=== PATIENT | male | born 1970 | race Caucasian/White ===

== ENCOUNTER 2017-10-01 19:21 | Emergency (ER) | payer SELFPAY ==
[~2017-10-01] VITALS: Ht 182.9 cm; Wt 93.9 kg
[2017-10-01 19:25] VITALS: BP 145/95
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
[2017-10-01] MEDS ORDERED: CEPH-264 PO (19:54)
[2017-10-01] MEDS ORDERED: oxyCODONE/APAP 10/325 1 TAB TABLET PO ONE (20:00)
[2017-10-01] MEDS ORDERED: KETOROLAC 60 MG/2 ML VIAL. IM ONE (20:00)
[2017-10-01] MEDS ORDERED: cefTRIAXone IM 1 GM VIAL IM ONE (20:00)
[2017-10-01] MEDS ORDERED: diphenhydrAMINE HCL 25 MG CAPSULE PO ONE (20:15)
[2017-10-01] MEDS ORDERED: NEOMYCIN/POLYMYXIN/HC OTIC SUSPENSION 10ML BOTTLE. AU ONE (20:15)
== END 2017-10-01 20:55 | disposition home or self-care (01) ==
LOC: ER 19:21
DX: H66.93 Otitis media, unspecified, bilateral (principal); J06.9 Acute upper respiratory infection, unspecified
CPT/HCPCS: 96372; 99284; J0696; J1885; Q0163

== ENCOUNTER 2017-10-13 08:55 | Emergency (ER) | payer SELFPAY ==
[2017-10-13 08:55] VITALS: BP 150/99
[~2017-10-13 08:55] MED LIST: CEPH-264 PO
--- NOTE | 2017-10-13 09:09 | PHYS DOC ---
Past History Past Medical History: Other Past Surgical History: No Surgical History Alcohol Use: None Drug Use: None Adult General Chief Complaint Chief Complaint: SHOULDER INJURY HPI HPI Patient is a 47-year-old male who presented ambulatory to the ED with the complaint of a fall on stairs. Patient states about an hour ago he was going down stairs made of concrete outside covered with no, he slipped and fell backwards. He believes he struck his head, the back of his neck, his upper back , and left upper arm/elbow area on the stairs. He got up and ambulated to his vehicle. He drove himself to [facility] and checked into the ED, he was seen but not given any medication, they ordered x-rays and he got impatient and left. He drove himself here and ambulated to the EMS doors, pounded on the doors until staff let him in. On arrival, he stated he needed to use the restroom, he was taken to the [facility] restroom where he urinated without closing the door. He was then taken to an exam room where he sat on the bed for history and exam. Patient denies loss of consciousness. He denies previous injury to the left shoulder or arm. He is right-handed. Patient gives a history of hypertension and "heart attacks", states he takes medication for "anxiety". States he does not smoke and drinks occasionally. Review of Systems Review of Systems Review of systems was not able to be obtained because the patient was uncooperative and then left. Allergies Allergies Allergies Coded Allergies Type Severity Reaction Last Updated Verified No Known Drug Allergies 10/01/17 No Physical Exam Physical Exam Constitutional: Well developed, well nourished, alert, warm and dry, ambulatory. Patient required assistance removing his T-shirt but then was noted to be able to put his T-shirt on himself when he decided to leave. HENT: Normocephalic, atraumatic, bilateral external ears normal, nose normal. No evidence of trauma to the head or face. Eyes: conjunctiva normal, no discharge. [] Neck: Normal range of motion, no stridor. No significant tenderness to the cervical spine on palpation. No deformity or crepitance. No evidence of contusion or abrasion. Back: Tenderness to palpation approximately T3-5 area. No evidence of contusion , swelling, or deformity. No tenderness of the lower thoracic or lumbar spine to palpation. Inspection of the entire back is unremarkable for acute injury. Cardiovascular:Heart rate regular rhythm, no murmur [] Lungs & Thorax: Bilateral breath sounds clear to auscultation [] Skin: Warm, dry, no erythema, no rash. [] Extremities: Right upper extremity unremarkable for deformity or tenderness. Moving right upper extremity with full range of motion without difficulty. Left upper extremity without significant tenderness to the shoulder joint, clavicle. Tenderness to the posterior aspect of the left upper arm. No deformity is noted on inspection or palpation. Patient refuses to allow palpation of his elbow. He does appear to have full range of motion of the elbow including flexion, extension, and rotation. No swelling noted to the elbow. Forearm, wrist, hand is without tenderness or deformity. Neurologic: Alert and oriented X 3, normal motor function, no focal deficits noted. [] EKG EKG [] Radiology/Procedures Radiology/Procedures [] Course & Med Decision Making Course & Med Decision Making Pertinent Labs and Imaging studies reviewed. (See chart for details) 47-year-old male presents ambulatory to the ED reporting a slip and fall on concrete stairs with injury to his upper back and left upper arm. Upon arrival to the ED, the patient was very argumentative, refusing to answer most questions , repeatedly loudly demanding that he just wants to be checked out and wants x- rays. ED application security specialist came and the patient became much more cooperative and did answer questions. After history and examination, I advised the patient that we will obtain x-rays of his left upper extremity and CT scan of his head and cervical/thoracic spine. Patient stood up off the bed, put his own T-shirt on, and stated that he is just going to leave. Patient ambulated out of the emergency department prior to having any discharge instructions or signing paperwork. Patient appears to be able to make his own decisions. He does not appear to be overtly intoxicated or under the influence. He appears to be oriented. [] Dragon Disclaimer Dragon Disclaimer This electronic medical record was generated, in whole or in part, using a voice recognition dictation system. Departure Departure: Impression: Primary Impression: Contusion of left arm Additional Impressions: Contusion of back wall of thorax Fall from slipping on snow Fall on stairs Disposition: 07 AGAINST MEDICAL ADVICE Condition: STABLE Referrals: PCP,NO (PCP) Problem Qualifiers HOLLY OLIVERA MD Oct 13, 2017 09:09
== END 2017-10-13 09:05 | disposition left against medical advice (07) ==
LOC: ER 08:55
DX: S40.022A Contusion of left upper arm, initial encounter (principal); S20.229A Contusion of unspecified back wall of thorax, initial encounter; F41.9 Anxiety disorder, unspecified; I11.9 Hypertensive heart disease without heart failure; W10.8XXA Fall (on) (from) other stairs and steps, initial encounter; Y93.89 Activity, other specified; Y99.8 Other external cause status; Y92.89 Other specified places as the place of occurrence of the external cause
CPT/HCPCS: 99281

== ENCOUNTER 2019-07-19 12:45 | Emergency (ER) | payer MEDICAID ==
[~2019-07-19] VITALS: Ht 182.9 cm; Wt 93.9 kg
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
[2019-07-19 13:22] LABS: BASO # 0.1 x10^3/uL (0.0-0.2); BASO % 1 % (0-3); EOS # 0.2 x10^3/uL (0.0-0.7); EOS % 3 % (0-3); HEMATOCRIT 50.7 % (39.0-53.0); HEMOGLOBIN 17.1 g/dL (13.0-17.5); LYMPH # 1.9 x10^3/uL (1.0-4.8); LYMPH % 31 % (24-48); MEAN CORPUSCULAR HEMOGLOBIN 30 pg (25-35); MEAN CORPUSCULAR HGB CONC 34 g/dL (31-37); MEAN CORPUSCULAR VOLUME 90 fL (79-100); MONO # 0.5 x10^3/uL (0.0-1.1); MONO % 8 % (0-9); NEUT # 3.5 x10^3uL (1.8-7.7); NEUT % 57 % (31-73); PLATELET COUNT 209 x10^3/uL (140-400); RED BLOOD COUNT 5.66 x10^6/uL (4.30-5.70); WHITE BLOOD COUNT 6.1 x10^3/uL (4.0-11.0)
[2019-07-19] MEDS ORDERED: HYDROcodone/APAP 5/325MG 1 TAB TABLET PO ONE (13:30)
[2019-07-19] MEDS ORDERED: IOHEXOL 300 MG/ML 75 ML VIAL. IV ONE (13:30)
[2019-07-19 13:34] LABS: ALBUMIN 3.7 g/dL (3.4-5.0); ALBUMIN/GLOBULIN RATIO 1.1 (1.0-1.7); CALCIUM 8.9 mg/dL (8.5-10.1); GFR 79.1; TOTAL BILIRUBIN 0.4 mg/dL (0.2-1.0)
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
[2019-07-19] MEDS ORDERED: CYCL5TAB PO (14:49)
[2019-07-19 15:00] VITALS: BP 143/65
== END 2019-07-19 14:56 | disposition home or self-care (01) ==
LOC: ER 12:45
DX: M25.511 Pain in right shoulder (principal); M54.2 Cervicalgia; R07.89 Other chest pain; I11.9 Hypertensive heart disease without heart failure; I25.2 Old myocardial infarction; F41.9 Anxiety disorder, unspecified; F32.9 Major depressive disorder, single episode, unspecified; Z87.820 Personal history of traumatic brain injury; V43.62XA Car passenger injured in collision with other type car in traffic accident, initial encounter; Y93.89 Activity, other specified; Y92.488 Other paved roadways as the place of occurrence of the external cause; Y99.8 Other external cause status
CPT/HCPCS: 36415; 70450; 71260; 72125; 80053; 85025; 99285; Q9967

== ENCOUNTER → 2019-07-28 | Outpatient (CLI) | payer OTHER, MEDICAID ==
[2019-07-19 15:00] VITALS: BP 143/65
[~2019-07-28] MED LIST changes: +CYCL5TAB PO
--- NOTE | 2019-07-28 17:36 | RAD ---
Thyroid sonogram Clinical indications: Thyroid nodule seen on CT. FINDINGS: The longitudinal and AP and transverse dimensions of the right lobe are 5.2 cm and 2.6 cm and 2.3 cm respectively. The longitudinal and AP and transverse dimensions of the left lobe are 4.5 cm and 1.8 cm and 2.0 cm respectively. On the right side, there is a dominant central mainly solid nodule measuring 2.9 cm in greatest dimension. Punctate echogenic foci are seen. Therefore this is a TR 4 lesion. On the left side, small colloid cyst is seen within the upper pole measuring 4 mm. There is a hypoechoic nodule within the lower aspect measuring 19 mm. Sound through-transmission is seen. This most likely represents a complex colloid cyst as well. This is considered a TR 3 lesion. This nodule may be followed sonographically. The isthmus measures 7 mm in thickness. IMPRESSION: Dominant nodule of the right lobe of the thyroid gland. Recommend ultrasound-guided fine-needle aspiration. Reference: ACR thyroid imaging, reporting and data system (TI-RADS): White paper of the ACR TI-RADS committee; J[employer]RNAL OF THE [employer]; volume 14, issue 5, pages 587-595 (February 2017) Electronically signed by: Kenton Marr MD (07/28/2019 5:33 PM) [id number]
== END | disposition home or self-care (01) ==
LOC: US 09:15
PROVIDERS: ATTEND Family Medicine
DX: E04.1 Nontoxic single thyroid nodule (principal)
CPT/HCPCS: 76536

== ENCOUNTER → 2019-09-04 | Outpatient (CLI) | payer OTHER ==
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
== END | disposition home or self-care (01) ==
LOC: PMG 16:39
PROVIDERS: ATTEND Family Medicine
DX: M25.522 Pain in left elbow (principal); M79.89 Other specified soft tissue disorders; V89.2XXA Person injured in unspecified motor-vehicle accident, traffic, initial encounter; Y93.89 Activity, other specified; Y92.89 Other specified places as the place of occurrence of the external cause; Y99.8 Other external cause status
CPT/HCPCS: 73080

== ENCOUNTER 2020-02-12 17:30 | Emergency (ER) | payer OTHER, MEDICAID ==
[~2020-02-12] VITALS: Ht 182.9 cm; Wt 107.0 kg
--- NOTE | 2020-02-12 17:54 | PHYS DOC ---
Past History Past Medical History: Anxiety, Depression, Heart Disease, Hypertension, [place], Other Additional Past Medical Histor: TBI Past Surgical History: Other Additional Past Surgical Histo: eyes Smoking: Second-hand Alcohol Use: Occasionally Drug Use: None General Adult HPI: HPI: ".. I was feeling like ... I had the flu ... or something the past week or so... I was talking to my doctor Yazmin Ozuna... I was feeling like lightheaded .. she said I need to come in and get checked.... May be a COVID test or something".. " I ve got this traumatic brain injury when I tried to hang myself so I have to be real careful with my body now..." Patient is a 49 year old male who presents with above hx and complaints of cough that is nonproductive. Patient denies any recent travel outside the [place] area. Patient denies any specific ill contacts other than his significant other who recently complained of sneezing and congestion.. Patient does have a past significant medical history of traumatic brain injury. Patient does have history of anxiety. Patient traumatic brain injury occurred during a suicide attempt. Patient did get flu vaccination pt. follows with Dr. Wilkes as primary and Dr. Yazmin Leger Review of Systems: Review of Systems: Constitutional: Subjective fever or chills Eyes: Denies change in visual acuity HENT: Denies nasal congestion or sore throat Respiratory: History of a nonproductive cough Cardiovascular: Denies chest pain or edema GI: Denies abdominal pain, nausea, vomiting, bloody stools or diarrhea : Denies dysuria Musculoskeletal: Denies back pain or joint pain Integument: Denies rash Neurologic: Denies headache, focal weakness or sensory changes complaints of feeling lightheaded Endocrine: Denies polyuria or polydipsia Lymphatic: Denies swollen glands Psychiatric: Denies depression or anxiety Heart Score: HEART Score for Chest Pain: HEART Score for Chest Pain Response (Comments) Value History Slighlty/Non-Suspicious 0 ECG Normal 0 Age >45 - < 65 1 Risk Factors 1 or 2 Risk Factors 1 Troponin < Normal Limit 0 Total 2 Risk Factors: Risk Factors: DM, Current or recent (<one month) smoker, HTN, HLP, family history of CAD, obesity. Risk Scores: Score 0 - 3: 2.5% MACE over next 6 weeks - Discharge Home Score 4 - 6: 20.3% MACE over next 6 weeks - Admit for Clinical Observation Score 7 - 10: 72.7% MACE over next 6 weeks - Early Invasive Strategies Family History: Family History: Noncontributory Current Medications: Current Meds: See nursing for home meds Allergies: Allergies: Allergies Coded Allergies Type Severity Reaction Last Updated Verified No Known Drug Allergies 10/01/17 No Physical Exam: PE: Constitutional: Anxious in no acute distress, non-toxic appearance. [] HENT: Normocephalic, atraumatic, bilateral external ears normal, oropharynx moist, no oral exudates, nose slight rhinorrhea. Eyes: PERRLA, EOMI, conjunctiva normal, no discharge. [] Neck: Normal range of motion, no tenderness, supple, no stridor. [] Cardiovascular:Heart rate regular rhythm, no murmur [] Lungs & Thorax: Bilateral breath sounds equal apex with few scattered wheezes auscultation [] Abdomen: Bowel sounds normal, soft, no tenderness, no masses, no pulsatile masses. [] Skin: Warm, dry, no erythema, no rash. [] Back: No tenderness, no CVA tenderness. [] Extremities: No tenderness, no cyanosis, no clubbing, ROM intact, no edema. [] Neurologic: Alert and oriented X 3, normal motor function, normal sensory function, no focal deficits noted. [] Psychologic: Affect anxious, judgement normal, mood normal. [] EKG: EKG: My interpretation of EKG shows a sinus rhythm at 89 bpm. There is some movement artifact. There are occasionally premature atrial complexes. [] Radiology/Procedures: Radiology/Procedures: [][address] [address] IMAGING REPORT Signed PATIENT: PABLO GARCIA ACCOUNT: [id number] : 1970 LOCATION: ER AGE: 49 SEX: M EXAM STATUS: REG ER ORD. PHYSICIAN: KELLY MEJIA MD REASON: cough PROCEDURE: PORTABLE CHEST 1V PORTABLE CHEST 1V 02/12/2020 5:57 PM INDICATION: Cough COMPARISON: CT chest 07/19/2019 TECHNIQUE: Portable frontal view of the chest is provided. FINDINGS: The cardiomediastinal silhouette is within normal limits. Lungs are clear. Calcified left hilar lymph node may represent sequela prior granulomatous exposure. There are no significant pleural effusions. There is no pulmonary vascular congestion. No pneumothorax. No suspicious osseous abnormality. IMPRESSION: There is no acute cardiopulmonary process. Electronically signed by: Little Dale MD (02/12/2020 6:55 PM) [facility] DICTATED AND SIGNED BY: LITTLE DALE MD DATE: 02/12/201854 CC: KELLY MEJIA MD; MELISSA WILKES MD ~ Course & Med Decision Making: Course & Med Decision Making Pertinent Labs and Imaging studies reviewed. (See chart for details) Push fluids. Take ibuprofen as needed for discomfort and fever. Follow-up primary care. Return if any concerns. If you feel you are getting flu or fever self isolate the next 2 weeks. Wear a mask when you are out. Avoid crowds. Take meds as previous directed. Use MDI two puffs four times a day. 1. Viral syndrome 2. Traumatic brain injury 3. History of anxiety [] Dragon Disclaimer: Dragon Disclaimer: This electronic medical record was generated, in whole or in part, using a voice recognition dictation system. Departure Departure: Disposition: 01 HOME/RESIDENCE PRIOR TO ADM Condition: STABLE Referrals: MELISSA WILKES MD (PCP) Scripts Albuterol Sulfate (VENTOLIN HFA INHALER) 18 Gm Hfa.aer.ad 2 PUFF IH PRN Q4HRS PRN for FOR ASTHMA, #30 INHALER 0 Refills Prov: KELLY MEJIA MD 02/12/20 Dragon Disclaimer This chart was dictated in whole or in part using Voice Recognition software in a busy, high-work load, and often noisy Emergency Department environment. It may contain unintended and wholly unrecognized errors or omissions. KELLY MEJIA MD Feb 12, 2020 17:55
[2020-02-12] MEDS ORDERED: IV RINGERS SOLUTION,LACTATED 1,000 ML IV SCH (17:57)
[2020-02-12] MEDS ORDERED: IV NORMAL SALINE 1,000ML 1,000 ML IV ONE (18:15)
[2020-02-12 18:44] LABS: BASO # 0.1 x10^3/uL (0.0-0.2); BASO % 1 % (0-3); EOS # 0.3 x10^3/uL (0.0-0.7); EOS % 4 % (0-3); HEMATOCRIT 50.6 % (39.0-53.0); HEMOGLOBIN 16.9 g/dL (13.0-17.5); LYMPH # 2.2 x10^3/uL (1.0-4.8); LYMPH % 31 % (24-48); MEAN CORPUSCULAR HEMOGLOBIN 31 pg (25-35); MEAN CORPUSCULAR HGB CONC 34 g/dL (31-37); MEAN CORPUSCULAR VOLUME 91 fL (79-100); MONO # 0.7 x10^3/uL (0.0-1.1); MONO % 10 % (0-9); NEUT # 3.8 x10^3uL (1.8-7.7); NEUT % 55 % (31-73); PLATELET COUNT 257 x10^3/uL (140-400); RED BLOOD COUNT 5.54 x10^6/uL (4.30-5.70); RED CELL DISTRIBUTION WIDTH 12.9 % (11.5-14.5)
[2020-02-12 18:53] LABS: ANION GAP 8 (6-14); BLOOD UREA NITROGEN 17 mg/dL (8-26); CARBON DIOXIDE 27 mmol/L (21-32); CHLORIDE 100 mmol/L (98-107); CREATININE 1.1 mg/dL (0.7-1.3); GFR 70.9; GLUCOSE 108 mg/dL (70-99); POTASSIUM 3.9 mmol/L (3.5-5.1); SODIUM 135 mmol/L (136-145)
--- NOTE | 2020-02-12 18:58 | RAD ---
PORTABLE CHEST 1V 02/12/2020 5:57 PM INDICATION: Cough COMPARISON: CT chest 07/19/2019 TECHNIQUE: Portable frontal view of the chest is provided. FINDINGS: The cardiomediastinal silhouette is within normal limits. Lungs are clear. Calcified left hilar lymph node may represent sequela prior granulomatous exposure. There are no significant pleural effusions. There is no pulmonary vascular congestion. No pneumothorax. No suspicious osseous abnormality. IMPRESSION: There is no acute cardiopulmonary process. Electronically signed by: Ema Childs MD (02/12/2020 6:55 PM) LOIDA
[2020-02-12 19:06] LABS: ALBUMIN 3.7 g/dL (3.4-5.0); ALK PHOS 82 U/L (46-116); ALT (SGPT) 60 U/L (16-63); AST (SGOT) 30 U/L (15-37); DIRECT BILIRUBIN 0.1 mg/dL (0.0-0.2); MAGNESIUM 2.3 mg/dL (1.8-2.4); TOTAL BILIRUBIN 0.3 mg/dL (0.2-1.0); TOTAL PROTEIN 7.3 g/dL (6.4-8.2)
[2020-02-12 19:48] LABS: SEDIMENTATION RATE 2 (0-15)
[2020-02-12 20:08] LABS: BARBITURATES NEG (NEG); BENZODIAZEPINES POS (NEG); CANNABINOIDS NEG (NEG); COCAINE NEG (NEG); METHADONE NEG (NEG); OPIATES NEG (NEG); PHENCYCLIDINE NEG (NEG)
[2020-02-12 20:10] LABS: AMPHETAMINE/METHAMPHETAMINE NEG (NEG)
[2020-02-12 20:16] LABS: BACTERIA,URINE 0 /HPF (0-FEW); BILIRUBIN,URINE NEG (NEG); CLARITY,URINE CLEAR; COLOR,URINE YELLOW; GLUCOSE,URINE NEG (NEG); NITRITE,URINE NEG (NEG); RBC,URINE OCC /HPF (0-2); SQUAMOUS EPITHELIAL CELL,UR OCC /LPF; UROBILINOGEN,URINE 0.2 mg/dL (0.2 mg/dL); WBC,URINE OCC /HPF (0-4)
[2020-02-12 21:00] LABS: INFLUENZA A PATIENT NEGATIVE (NEGATIVE); INFLUENZA B PATIENT NEGATIVE (NEGATIVE)
[2020-02-12 21:11] VITALS: BP 131/75
[2020-02-12] MEDS ORDERED: ALBU2.5V8 IH (21:51)
--- NOTE | 2020-02-13 00:14 | EKG ---
[address] [address] Test Date: 2020-02-12 Test Time: 18:31:01 Pat Name: PABLO GARCIA Department: Room: Gender: M Gi Technician: : 1970 Requested By: KELLY MEJIA Order Number: [id number] Reading MD: Tavares Rodriguez Measurements Intervals [place] Rate: 89 P: 42 NC: 126 QRS: 7 QRSD: 94 T: 133 QT: 342 QTc: 417 Interpretive Statements SINUS RHYTHM ATRIAL PREMATURE COMPLEX(ES) T ABNORMALITY IN HIGH LATERAL LEADS ABNORMAL ECG Electronically Signed On 02-14-2020 20:03:07 CDT by Tavares Rodriguez
== END 2020-02-12 21:32 | disposition home or self-care (01) ==
LOC: ER 17:30
DX: B34.9 Viral infection, unspecified (principal); R42 Dizziness and giddiness; F41.9 Anxiety disorder, unspecified; F32.9 Major depressive disorder, single episode, unspecified; I11.0 Hypertensive heart disease with heart failure; I25.2 Old myocardial infarction; Z87.820 Personal history of traumatic brain injury; Z77.22 Contact with and (suspected) exposure to environmental tobacco smoke (acute) (chronic)
CPT/HCPCS: 36415; 36600; 71045; 80048; 80076; 80307; 81001; 82550; 83735; 83880; 84443; 84484; 85025; 85379; 85610; 85651; 85730; 87070; 87804; 87880; 93005; 96360; 99285-25; J7030

== ENCOUNTER 2020-09-21 03:30 | Emergency (ER) | payer OTHER, MEDICAID ==
[~2020-09-21] VITALS: Ht 182.9 cm; Wt 108.2 kg
[~2020-09-21 03:30] MED LIST changes: +ALBU2.5V8 IH
[2020-09-21] MEDS ORDERED: KETOROLAC 15 MG/ML VIAL. IVP ONE (03:45)
[2020-09-21] MEDS ORDERED: diphenhydrAMINE 50 MG/ML VIAL IVP ONE (03:45)
[2020-09-21] MEDS ORDERED: IV NORMAL SALINE 1,000ML 1,000 ML IV ONE (03:45)
[2020-09-21] MEDS ORDERED: PROCHLORPERAZINE 10 MG/2 ML VIAL. IV ONE (03:45)
--- NOTE | 2020-09-21 03:46 | PHYS DOC ---
Past History Past Medical History: Anxiety, Depression, Heart Disease, Hypertension, [place], Other Additional Past Medical Histor: TBI Past Surgical History: Other Additional Past Surgical Histo: eyes Smoking: Second-hand Alcohol Use: None Drug Use: None General Adult HPI: HPI: Patient is a 50-year-old male coming in via EMS for headache that started 7/2 hours prior to arrival. Patient states that headache is gradual in onset, right-sided and throbbing. Associated with nausea and photophobia. Patient has a history of similar migraines in the past with negative work-up. Patient states he has had a migraine since he got somatic pain and injury for 5 years ago. He says otherwise he has been well but noticed a bump on the side of his head yesterday that is tender. Says he drank a beer and took 2 Advil to try to alleviate symptoms. Denies any recent trauma or illness. Denies fever or neck stiffness Review of Systems: Review of Systems: Constitutional: Denies fever or chills Eyes: Denies change in visual acuity HENT: Denies nasal congestion or sore throat, also denies ear pain or tinnitus Respiratory: Denies cough or shortness of breath Cardiovascular: Denies chest pain or edema GI: Denies abdominal pain, vomiting, bloody stools or diarrhea but has had nausea : Denies dysuria Musculoskeletal: Denies back pain or joint pain Integument: Denies rash Neurologic: D right-sided headache with photophobia, without focal weakness or sensory changes Endocrine: Denies polyuria or polydipsia Lymphatic: Denies swollen glands Psychiatric: Denies depression or anxiety Current Medications: Current Meds: Current Medications Medications (Trade) Dose Ordered Sig/Lexi Start Time Stop Time Status Last Admin Dose Admin Diphenhydramine HCl (Benadryl) 50 mg 1X ONCE 09/21/20 03:45 09/21/20 03:46 UNV Ketorolac Tromethamine (Toradol 15mg Vial) 15 mg 1X ONCE 09/21/20 03:45 09/21/20 03:46 UNV Prochlorperazine Edisylate (Compazine) 10 mg 1X ONCE 09/21/20 03:45 09/21/20 03:46 UNV Sodium Chloride 1,000 ml @ 1,000 mls/hr 1X ONCE 09/21/20 03:45 09/21/20 04:44 UNV Allergies: Allergies: Allergies Coded Allergies Type Severity Reaction Last Updated Verified acetaminophen Allergy Unknown 02/12/20 Yes codeine Allergy Unknown 02/12/20 Yes gabapentin Allergy Unknown 02/12/20 Yes Physical Exam: PE: Constitutional: Well developed, well nourished, mild distress, non-toxic appearance. [] HENT: Normocephalic, atraumatic, bilateral external ears normal, oropharynx moist, no oral exudates, nose normal. [] Small about 1 cm bump on right side of head in the parietal area Eyes: PERRLA, EOMI, conjunctiva normal, no discharge. [] Neck: Normal range of motion, no tenderness, supple, no stridor. [] No rigidity Cardiovascular:Heart rate regular rhythm, no murmur [] Lungs & Thorax: Bilateral breath sounds clear to auscultation [] Abdomen: Bowel sounds normal, soft, no tenderness, no masses, no pulsatile masses. [] Skin: Warm, dry, no erythema, no rash. [] Back: No tenderness, no CVA tenderness. [] Extremities: No tenderness, no cyanosis, no clubbing, ROM intact, no edema. [] Neurologic: Alert and oriented X 3, normal motor function, normal sensory function, no focal deficits noted. [] Psychologic: Affect normal, judgement normal, mood normal. [] EKG: EKG: [] Radiology/Procedures: Radiology/Procedures: [] Heart Score: Risk Factors: Risk Factors: DM, Current or recent (<one month) smoker, HTN, HLP, family history of CAD, obesity. Risk Scores: Score 0 - 3: 2.5% MACE over next 6 weeks - Discharge Home Score 4 - 6: 20.3% MACE over next 6 weeks - Admit for Clinical Observation Score 7 - 10: 72.7% MACE over next 6 weeks - Early Invasive Strategies Course & Med Decision Making: Course & Med Decision Making Small bump on side of head consistent with clogged follicle or duct, no fluctuance or erythema Labs unremarkable, after medications patient stating he feels better. Patient saying he does not have a ride or his phone, also does not have money for cab. [] Briseyda Disclaimer: Briseyda Disclaimer: This electronic medical record was generated, in whole or in part, using a voice recognition dictation system. Departure Departure: Impression: Primary Impression: Migraine Disposition: 01 DC HOME SELF CARE/HOMELESS Condition: IMPROVED Referrals: MELISSA ALBARRAN MD (PCP) Patient Instructions: Migraine Headache, [id number] ARVIN DOTSON MD Sep 21, 2020 03:46
[2020-09-21 04:18] VITALS: BP 139/55
[2020-09-21 04:38] LABS: CREATININE 0.9 mg/dL (0.7-1.3); POTASSIUM 3.7 mmol/L (3.5-5.1)
[2020-09-21 04:44] LABS: ALBUMIN 3.1 g/dL (3.4-5.0); TOTAL BILIRUBIN 0.1 mg/dL (0.2-1.0); TOTAL PROTEIN 6.1 g/dL (6.4-8.2)
[2020-09-21 04:58] LABS: BASO # 0.1 x10^3/uL (0.0-0.2); BASO % 1 % (0-3); EOS # 0.2 x10^3/uL (0.0-0.7); EOS % 3 % (0-3); HEMATOCRIT 43.6 % (39.0-53.0); HEMOGLOBIN 14.5 g/dL (13.0-17.5); LYMPH # 2.2 x10^3/uL (1.0-4.8); LYMPH % 29 % (24-48); MEAN CORPUSCULAR HEMOGLOBIN 31 pg (25-35); MEAN CORPUSCULAR HGB CONC 33 g/dL (31-37); MEAN CORPUSCULAR VOLUME 92 fL (79-100); MONO # 0.5 x10^3/uL (0.0-1.1); MONO % 6 % (0-9); NEUT # 4.8 x10^3uL (1.8-7.7); NEUT % 62 % (31-73); PLATELET COUNT 228 x10^3/uL (140-400); RED BLOOD COUNT 4.75 x10^6/uL (4.30-5.70); WHITE BLOOD COUNT 7.8 x10^3/uL (4.0-11.0)
[2020-09-21] MEDS ORDERED: HYDROmorphone PF 1 MG/ML DISP.SYRIN ONE (05:08)
[2020-09-21] MEDS ORDERED: HYDROmorphone PF 1 MG/ML DISP.SYRIN IVP ONE (05:15)
== END 2020-09-21 05:31 | disposition home or self-care (01) ==
LOC: ER 03:30
DX: G43.909 Migraine, unspecified, not intractable, without status migrainosus (principal); I11.9 Hypertensive heart disease without heart failure; I25.2 Old myocardial infarction; Z77.22 Contact with and (suspected) exposure to environmental tobacco smoke (acute) (chronic); Z87.820 Personal history of traumatic brain injury; Z88.5 Allergy status to narcotic agent; Z88.8 Allergy status to other drugs, medicaments and biological substances
CPT/HCPCS: 36415; 80053; 85025; 96361; 96374; 96375; 99284; G0480; J0780; J1200; J1885; J7030

== ENCOUNTER → 2020-10-25 | Outpatient (CLI) | payer OTHER ==
--- NOTE | 2020-10-25 16:34 | RAD ---
EXAM: Chest and right ribs, 6 views. HISTORY: Pain. COMPARISON: 02/12/2020 FINDINGS: A frontal view of the chest and 5 views of the right ribs are obtained. There is right uppe r lobe interstitial opacity likely due to interstitial infiltrate. There is no pleural effusion or pn eumothorax. The heart is normal in size. There are calcified granulomas. No displaced rib fracture is seen. IMPRESSION: Suspected right upper lobe interstitial infiltrate. Follow-up to confirm resolution. Electronically signed by: Georgie Reyes MD (10/25/2020 4:32 PM) [id number]
== END ==
LOC: DXRAD 16:02
PROVIDERS: ATTEND Family Medicine
DX: S20.211A Contusion of right front wall of thorax, initial encounter (principal); J84.10 Pulmonary fibrosis, unspecified; X58.XXXA Exposure to other specified factors, initial encounter; Y93.89 Activity, other specified; Y92.89 Other specified places as the place of occurrence of the external cause; Y99.8 Other external cause status
CPT/HCPCS: 71101

== ENCOUNTER → 2020-11-25 | Outpatient (CLI) | payer OTHER ==
--- NOTE | 2020-11-25 16:27 | RAD ---
XR ELBOW_LEFT 11/25/2020 4:20 PM INDICATION: Fall, left elbow injury, swelling and pain COMPARISON: None available. TECHNIQUE: 2 views of the left elbow are provided. FINDINGS/ IMPRESSION: No definite elbow joint effusion. There is no acute fracture or dislocation. Joint spaces are maintai toshia. Bone mineralization is within normal limits. Regional soft tissues are within normal limits. The re is no soft tissue gas or osseous erosion. No radiopaque foreign body. There is an ossific body carol ng the anterior ulnar trochlear joint space. Electronically signed by: Ema Childs MD (11/25/2020 4:24 PM) LO[facility]
== END ==
LOC: PMG 15:59
PROVIDERS: ATTEND Family Medicine
DX: M25.522 Pain in left elbow (principal)
CPT/HCPCS: 73070